=== PATIENT | female | born 1955 | race Caucasian/White ===

== ENCOUNTER 2024-07-04 17:53 | Emergency (ER) | payer MEDICARE, SELFPAY ==
[2024-07-04] VITALS (11 sets, daily range): BP systolic 124–171; BP diastolic 62–85; PULSE 76–84; RESP 16–18; TEMP 36.8–37.6; O2SAT 94–99; BMI 31.7
--- NOTE | 2024-07-04 18:38 | PC.NURSE ---
PT ASSISTED TO BR
--- NOTE | 2024-07-04 18:40 | CT_ITS ---
PROCEDURE INFORMATION: Exam: CT Abdomen And Pelvis Without Contrast Exam date and time: 07/04/2024 7:25 PM Age: 68 years old Clinical indication: Pain; Other: Rlq; Additional info: Rlq abd pain TECHNIQUE: Imaging protocol: Computed tomography of the abdomen and pelvis without contrast. Radiation optimization: All CT scans at this facility use at least one of these dose optimization techniques: automated exposure control; mA and/or kV adjustment per patient size (includes targeted exams where dose is matched to clinical indication); or iterative reconstruction. COMPARISON: CR XR CHEST PORTABLE 07/04/2024 6:53 PM FINDINGS: Lungs: Dependent bilateral lung base opacities favor atelectasis. Multiple calcific densities of the liver are likely related to prior granulomatous process. Liver: There is diffuse hypoattenuation of the liver compatible with mild hepatic steatosis. Gallbladder and biliary ducts: There are surgical clips within the gallbladder fossa. Pancreas: Normal. No ductal dilation. Spleen: Normal. No splenomegaly. Adrenal glands: Normal. No mass. Kidneys and ureters: Right renal Bosniak 1 cystic lesion that is homogeneous and fluid density (-9-20 HU), no septations or calcifications, having koehler smooth and thin. Measurement is 2.8 cm. No follow-up recommended. Stomach and bowel: Diverticula are scattered throughout the colon without inflammatory changes. Appendix: The appendix is not definitely identified, but there are no primary or secondary CT findings to suggest a diagnosis of acute appendicitis. Intraperitoneal space: Unremarkable. No free air. No significant fluid collection. Vasculature: Moderate calcific atherosclerotic disease of the abdominal aorta without aneurysmal dilatation is present. Lymph nodes: Unremarkable. No enlarged lymph nodes. Urinary bladder: Unremarkable as visualized. Reproductive: Unremarkable as visualized. Bones/joints: Postsurgical changes compatible with posterior fusion with transpedicular screws, vertical stabilizing bars, and intervertebral disc spacers between levels L3 through L5. Moderate loss of intervertebral disc space with degenerative changes involving L1 through S1. Soft tissues: Postsurgical changes compatible with bilateral mastectomies with right saline implant. IMPRESSION: No acute findings. COMMENTS: Consistent with the [employer]'s Incidental Findings Committee white paper (J Am Karen Radiol 2018): Any incidental renal lesion less than 1 cm or classified as too small to characterize, or any incidental cystic renal lesion characterized as simple-appearing, is likely benign. No follow-up imaging is recommended for these lesions per consensus recommendations based on imaging criteria.
--- NOTE | 2024-07-04 18:40 | XR_ITS ---
PROCEDURE INFORMATION: Exam: XR Chest Exam date and time: 07/04/2024 6:53 PM Age: 68 years old Clinical indication: Dyspnea TECHNIQUE: Imaging protocol: Radiologic exam of the chest. Views: 1 view. COMPARISON: No relevant prior studies available. FINDINGS: Lungs: See Pleural spaces finding. Pleural spaces: Low lung volumes are present without pleural effusions or consolidations that project above the diaphragm. Heart/Mediastinum: Unremarkable. No cardiomegaly. Bones/joints: ACDF hardware located at levels C5 through C7. IMPRESSION: Low lung volumes are present without pleural effusions or consolidations that project above the diaphragm.
--- NOTE | 2024-07-04 18:43 | ED_ITS ---
Discharge Plan Disposition Patient Disposition: Home, Self-Care Prescriptions Prescriptions: No Action ketotifen fumarate 0.025 % (0.035 %) drops OPHTHALMIC Patient Comments: LOCATION: BOTH EYES. INSTILL ONE DROP TO EACH EYE TWICE DAILY WHILE SYMPTOMATIC. levocetirizine 5 mg tablet 5 mg PO DAILY Patient Comments: TAKE ONE (1) TABLET(S) EVERY DAY BY ORAL ROUTE FOR 90 DAYS. levothyroxine 112 mcg tablet 112 mcg PO DAILY Patient Comments: TAKE ONE TABLET BY MOUTH DAILY metformin 1,000 mg tablet 1,000 mg PO DAILY Patient Comments: TAKE ONE TABLET BY MOUTH TWICE A DAY simvastatin 20 mg tablet 20 mg PO DAILY venlafaxine 150 mg capsule,extended release 24hr 150 mg PO DAILY anastrozole 1 mg tablet 1 mg PO Patient Comments: TAKE ONE (1) TABLET(S) EVERY DAY BY ORAL ROUTE FOR 90 DAYS. losartan 50 mg tablet 50 mg PO DAILY Patient Comments: TAKE ONE TABLET BY MOUTH DAILY naproxen 500 mg tablet 500 mg PO DAILY Patient Comments: TAKE ONE (1) TABLET(S) TWICE A DAY BY ORAL ROUTE. insulin glargine U-300 conc 300 unit/mL (3 mL) insulin pen SQ dulaglutide 1.5 mg/0.5 mL pen injector SQ fluticasone propionate 50 mcg/actuation spray,suspension INTRANASAL albuterol sulfate 90 mcg/actuation HFA aerosol inhaler See Protocol INHALATION DIRECTED Protocol: Insulin Corrective Med-Dose Regimen Condition: Fingerstick Blood Glucose Dose/Route: Insulin Units Condition: 151-200 mg/dl Dose/Route: 2 units/SQ Condition: 201-250 mg/dl Dose/Route: 5 units/SQ Condition: 251-300 mg/dl Dose/Route: 8 units/SQ Condition: 301-350 mg/dl Dose/Route: 10 units/SQ Condition: 351-400 mg/dl Dose/Route: 12 units/SQ Condition: 401-450 mg/dl Dose/Route: 15 units/SQ Condition: > 450 mg/dl Dose/Route: CALL MD Protocol Text: Medium Intensity Sliding Scale Insulin Referrals Follow up/Referrals: Kassie Hi APRN [Primary Care Provider] - See instructions Activity Restrictions/Add. Instructions Additional Instructions/Restrictions: After extensive emergency evaluation no emergent medical condition identified today. Your symptoms likely were related to your hyperglycemia and fluid losses but no further emergent intervention or hospitalization is required today. Please follow-up close with your primary care doctor to discuss ongoing glucose management. Clinical Impressions Clinical Impression: Hyperglycemia, Light headedness Instructions Patient Instructions: DI for Hyperglycemia -- Adult Print Language Print Language: Uzbek Discharge ED Provider: Brandon Snell General Adult HPI General Chief complaint: Hyper/Hypoglycemia Stated complaint: high blood sugar Time Seen by Provider: 07/04/24 18:26 History of Present Illness HPI narrative: Patient is a 68-year-old female presented with multiple complaints. Initial complaint is hyperglycemia and lightheadedness. She states that over the last several months she has been nauseated and having some abdominal discomfort particular the right lower quadrant. She has not had any imaging of her abdomen but she has had a colonoscopy which was unremarkable. She states that she is compliant with her insulin and her oral diabetes medications and her most recent A1c was around 7. She does states she has had some chills as well as a cough some foul-smelling urine and just generalized weakness at the moment. Related Data Home Medications ?Medication ?Instructions ?Recorded ?Confirmed anastrozole 1 mg tablet 1 mg PO 08/19/20 09/12/20 dulaglutide 1.5 mg/0.5 mL mg SQ 08/19/20 09/12/20 subcutaneous pen injector insulin glargine U-300 conc 300 unit SQ 08/19/20 09/12/20 unit/mL (3 mL) subcutaneous pen ketotifen fumarate 0.025 % (0.035 ml ophthalmic (eye) 08/19/20 09/12/20 %) eye drops levocetirizine 5 mg tablet 5 mg PO DAILY 08/19/20 07/04/24 levothyroxine 112 mcg tablet 112 mcg PO DAILY 08/19/20 07/04/24 losartan 50 mg tablet 50 mg PO DAILY 08/19/20 07/04/24 metformin 1,000 mg tablet 1,000 mg PO DAILY 08/19/20 07/04/24 naproxen 500 mg tablet 500 mg PO DAILY 08/19/20 07/04/24 simvastatin 20 mg tablet 20 mg PO DAILY 08/19/20 07/04/24 venlafaxine 150 mg 150 mg PO DAILY 08/19/20 07/04/24 capsule,extended release 24 hr albuterol sulfate 90 mcg/actuation See Protocol inhalation DIRECTED 09/12/20 07/04/24 aerosol inhaler fluticasone propionate 50 intranasal 09/12/20 09/12/20 mcg/actuation nasal spray,suspension Allergies Allergy/AdvReac Type Severity Reaction Status Date / Time Sulfa (Sulfonamide Allergy Intermediate Verified 09/12/20 12:48 Antibiotics) [facility] Disclaimer: The information contained in this section may have been updated after the patient was seen, as this information can be updated by other users. Social History Smoking Status: Never smoker alcohol intake: never substance use type: denies use current occupational status: employed Travel in the last 8 weeks: None Have you lived/traveled outside [place] in past 30 days?: No Contact w/someone who lives/traveled outside US past 30 days?: No Exposure to someone with infectious disease in past 14 days?: No Do you have a fever (greater than 100.4 F or 38 C)?: No Have you tested positive for COVID-19: No Exposed to someone with COVID-19 in past 14 days?: No Do you have a sore throat?: No Do you have a cough?: No Do you have any weakness?: No Do you have any diarrhea?: No Are you experiencing any unusual bleeding?: No Do you have any muscle aches/pain?: No Do you have any abdominal pain?: No Are you experiencing loss of taste or smell?: No Other Medical History Have you received the Pneumonia Vaccine: No ROS Obtained: Yes All systems reviewed & no additional complaints except as documented Physical Exam General General appearance: alert and in no apparent distress Respiratory Respiratory exam: Present normal lung sounds bilaterally; Absent respiratory distress Cardiovascular Cardiovascular exam: Present regular rate and normal rhythm Abdominal Exam Abdominal exam: Present soft and tenderness (Right lower quadrant tenderness) Neurological Exam Neurological exam: Present alert and oriented X3 Medical Decision Making Medical Records Screening: Per USPSTF and CDC recommendations, given the prevalence of disease in our region, it is our hospital?s policy to screen for HIV and viral Hepatitis for all patients aged 18 and over and those with ongoing risk factors. Miguel Inquiry Pt receiving controlled substance: No Vital Signs: 07/04/24 17:54 07/04/24 18:21 07/04/24 19:30 Temperature 99.7 F H Temperature Source Oral Pulse Rate 84 79 Pulse Rate [Radial] 78 Respiratory Rate 18 Blood Pressure 124/67 125/63 Blood Pressure [Right Arm] 124/67 Blood Pressure Mean [Right Arm] 86 Blood Pressure Source Blood Pressure Source [Right Arm] Automatic Cuff Blood Pressure Position Blood Pressure Position [Right Arm] Sitting 02 Sat by Pulse Oximetry 96 96 96 Oxygen Delivery Method Room Air Room Air 07/04/24 19:35 07/04/24 20:00 07/04/24 20:20 Temperature 98.5 F Temperature Source Oral Pulse Rate 78 77 78 Pulse Rate [Radial] Respiratory Rate 16 16 Blood Pressure 133/65 132/64 132/64 Blood Pressure [Right Arm] Blood Pressure Mean [Right Arm] Blood Pressure Source Automatic Cuff Automatic Cuff Blood Pressure Source [Right Arm] Blood Pressure Position Sitting Sitting Blood Pressure Position [Right Arm] 02 Sat by Pulse Oximetry 95 94 L 95 Oxygen Delivery Method Room Air 07/04/24 20:31 07/04/24 20:41 07/04/24 21:00 Temperature Temperature Source Pulse Rate 78 77 77 Pulse Rate [Radial] Respiratory Rate Blood Pressure 171/77 H 155/85 H 163/83 H Blood Pressure [Right Arm] Blood Pressure Mean [Right Arm] Blood Pressure Source Blood Pressure Source [Right Arm] Blood Pressure Position Blood Pressure Position [Right Arm] 02 Sat by Pulse Oximetry 95 97 97 Oxygen Delivery Method 07/04/24 21:26 Temperature Temperature Source Pulse Rate 76 Pulse Rate [Radial] Respiratory Rate 18 Blood Pressure 163/83 H Blood Pressure [Right Arm] Blood Pressure Mean [Right Arm] Blood Pressure Source Automatic Cuff Blood Pressure Source [Right Arm] Blood Pressure Position Sitting Blood Pressure Position [Right Arm] 02 Sat by Pulse Oximetry 99 Oxygen Delivery Method Room Air Lab Data Lab results reviewed: Yes I reviewed the patient's lab results. Lab Results 07/04/24 18:36: SARS-CoV-2 (PCR) Not detected, Influenza A Untype (PCR) Not detected, Influenza Type B (PCR) Not detected 07/04/24 18:40: VBG pH 7.32, VBG pCO2 44.0, VBG pO2 39.4, VBG HCO3 22.2 L, VBG Total CO2 23.6, VBG O2 Saturation 70.7 H, VBG Base Excess -3.9 L, VBG Lactic Acid 1.7, Urine Color Yellow, Urine Appearance Clear, Urine pH 6.0, Ur Specific Cope 1.020, Urine Protein Negative, Urine Glucose (UA) 3+, Urine Ketones Negative, Urine Blood Negative, Urine Nitrate Negative, Urine Bilirubin Negative, Urine Urobilinogen 0.2, Ur Leukocyte Esterase Negative, Urine RBC None, Urine WBC 10-20, Ur Squamous Epith Cells 5-10, Urine Bacteria 2+ 07/04/24 18:49: WBC 5.8, RBC 4.05 L, Hgb 12.6, Hct 37.4, MCV 92.3, MCH 31.1, MCHC 33.7, RDW 12.7, Plt Count 216, MPV 11.1 H, Neut % (Auto) 63.9, Lymph % (Auto) 15.5, [place] % (Auto) 17.0 H, Eos % (Auto) 1.5, Baso % (Auto) 0.7, Neut # (Auto) 3.7, Lymph # (Auto) 0.9, [place] # (Auto) 1.0, Eos # (Auto) 0.1, Baso # (Auto) 0.0, Sodium 130 L, Potassium 4.5, Chloride 96 L, Carbon Dioxide 24, Anion Gap 14.5, BUN 35 H, Creatinine 1.80 H, Estimated Creat Clear 39, Estimated GFR 28 L, Est GFR ( Amer) 34 L, Glucose 386 H, Calcium 9.2, Phosphorus 3.0, M agnesium 1.5 L, Total Bilirubin 0.4, AST 75 H, ALT 50, Alkaline Phosphatase 61, Troponin I < 0.01, Total Protein 6.6, Albumin 4.1, Globulin 2.5, Albumin/Globulin Ratio 1.6, Lipase 492 H, HCV Ab ROBERT w/Rflx PCR Qn Negative, HIV Ag/Ab Combo Qual Negative 07/04/24 18:49 07/04/24 18:49 Orders (Tests/Meds): ED MEDICATIONS Discontinued Medications Generic Name Dose Route Start Last Admin Trade Name Freq PRN Reason Stop Dose Admin Lactated Ringer's 1,000 mls @ 999 mls/hr 07/04/24 18:45 07/04/24 18:56 Lactated Ringer's 1000 Ml Bag IV 07/04/24 19:45 999 mls/hr .Q1H1M CHARLA Administration ORDERS Category Date Time Status CT abdomen pelvis wo con Stat Cat Scan 07/04/24 18:40 Completed CXR --portable [XR chest portable] Stat Exams 07/04/24 18:40 Completed CBC w/Auto Diff [Complete Blood Count Auto Diff] Stat Lab 07/04/24 18:49 Completed CMP [Comprehensive Metabolic Panel] Stat Lab 07/04/24 18:49 Completed HIV Combo Stat Lab 07/04/24 18:49 Completed Hepatitis C Ab Qual. W/ RFX Stat Lab 07/04/24 18:49 Completed Lipase Stat Lab 07/04/24 18:49 Completed Magnesium Stat Lab 07/04/24 18:49 Completed Phosphorous Stat Lab 07/04/24 18:49 Completed Rapid PCR Covid and Flu A/B Stat Lab 07/04/24 18:36 Completed Trop I [Troponin I] Stat Lab 07/04/24 18:49 Completed Troponin I Q3H Lab 07/04/24 21:45 Ordered Troponin I Q3H Lab 07/05/24 00:45 Ordered UA [Urinalysis and Microscopic] Stat Lab 07/04/24 18:40 Completed Blood Culture Stat Micro 07/04/24 18:40 Received Urine Culture Stat Micro 07/04/24 18:40 Received Venous Blood Gas Stat RT 07/04/24 18:40 Completed Medical Decision Narrative: Patient is a 68-year-old who seems to be compliant with her insulin and oral diabetic medications presents today with glucose greater than 500 prehospital. She also has many other complaints such as chronic abdominal pain right lower quadrant tenderness cough urinary symptoms as well as lightheadedness. This all could be from dehydration from osmotic diuresis in the setting of significant hyperglycemia however infections and other metabolic abnormalities are possible as well. Will also get a CT scan of her abdomen to rule out any pathology such as malignancy) she does have a history of breast cancer). Broad workup is pending IV fluids have been initiated and will reassess shortly. CT scan performed which I personally interpreted which shows no evidence of acute abnormality radiology read consistent with this as well. Labs unremarkable from an emergency standpoint she does have a creatinine of 1.8 but she has known chronic kidney disease and has been followed by environmental officer for this. I do not have a baseline but I presume that this is close to where she is. Patient does feel better after IV fluids lipase is very mildly elevated but she has no epigastric tenderness on my exam does not consistent with acute pancreatitis. Lastly COVID and flu were negative. Chest x-ray was performed which I personally interpreted which shows no evidence of acute cardiopulmonary emergency. Overall patient symptoms likely secondary to fluid losses and hyperglycemia but no evidence of DKA patient was discharged in improved and stable condition with advised to follow-up with her primary care doctor regarding ongoing glucose management Critical Care Critical Care Time Critical Care Time: No
--- NOTE | 2024-07-04 18:53 | PC.NURSE ---
portable rad at BS
--- NOTE | 2024-07-04 18:53 | PC.NURSE ---
XR AT BEDSIDE
[2024-07-04] MEDS: LACTATED RINGERS 1000ML 1,000 ML 999 ML IV (18:56)
[2024-07-04 18:58] LABS: Lactate Venous 1.7 mmol/L (0.4-2.0); Microscopic, Urine URINE MICROSCOPIC (MICROSCOPIC); VBG Base Excess -3.9 mmol/L (-2.4-2.3); VBG HCO3 22.2 mmol/L (23-30); VBG Oxygen Saturation 70.7 % (50-70); VBG PH 7.32 mmol/L (7.31-7.41); VBG PO2 39.4 mmol/L (28-40); VBG Total CO2 23.6 mmol/L (23-27)
[2024-07-04 18:59] LABS: Basophils % 0.7 % (0.1-2.0); Eosinophils # 0.1 K/mm3 (0.0-0.4); Eosinophils % 1.5 % (0.1-12.0); Hematocrit 37.4 % (37.0-47.0); Hemoglobin 12.6 g/dL (12.2-16.2); Lymphocytes # 0.9 K/mm3 (0.7-4.5); Lymphocytes % 15.5 % (10-50); Mean Corpuscular HGB Conc 33.7 g/dL (31.8-35.4); Mean Corpuscular Hemoglobin 31.1 pg (27.0-31.2); Mean Corpuscular Volume 92.3 fl (81-99); Mean Platelet Volume 11.1 fl (7.4-10.4); Neutrophils # 3.7 K/mm3 (1.8-7.8); Neutrophils % 63.9 % (37.0-80.0); Platelet Count 216 K/mm3 (142-424); Red Blood Count 4.05 M/mm3 (4.20-5.40); Red Cell Distribution Width 12.7 % (11.5-17.5); White Blood Count 5.8 K/mm3 (4.8-10.8)
--- NOTE | 2024-07-04 18:59 | ECG_ITS ---
APPROVED REPORT Exam: Resting ECG HR:77 bpm ECG Measurements Heart Rate 77 AXES MI 152 P 25 QRSd 88 QRS 64 QT 378 T 51 QTc 410 Conclusion SINUS RHYTHM NORMAL ECG UNCONFIRMED REPORT Electronically signed by : Harry Snell, 07/04/2024 22:26:47
[2024-07-04 19:02] LABS: Appearance,Urine CLEAR (Clear); Bilirubin,Urine Negative (Negative); Blood, Urine Negative (Negative); Color,Urine YELLOW (Yellow); Glucose,Urine (UA) 3+ (Negative); Ketones,Urine Negative (Negative); Leukocyte Esterase,Urine Negative (Negative); Nitrate,Urine Negative (Negative); Protein,Urine Negative (Negative); Urobilinogen,Urine 0.2 EU/dl (0.2)
[2024-07-04 19:07] LABS: Albumin Level 4.1 g/dl (3.5-5.0); Chloride 96 mmol/L (98-107); Potassium 4.5 mmoL/L (3.5-5.1); Sodium 130 mmol/L (136-145)
[2024-07-04 19:09] LABS: Blood Urea Nitrogen 35 mg/dl (7-17); Creatinine Clearance Estimated 39 mL/min (50-200); Estimated Glomerular Filt Rate 28 ml/min (>60); GFR (African American) 34 ML/MIN (>60)
[2024-07-04 19:10] LABS: Alanine Aminotransferase 50 U/L (12-78); Albumin/Globulin Ratio 1.6 (1.1-1.8); Alkaline Phosphatase 61 U/L (38-126); Anion Gap 14.5 mEq/L (5-15); Aspartate Amino Transferase 75 U/L (14-36); Bilirubin,Total 0.4 mg/dl (0.2-1.3); Calcium 9.2 mg/dl (8.4-10.2); Carbon Dioxide 24 mmol/L (22.0-30.0); Globulin 2.5 g/dL (1.3-3.2); Glucose 386 mg/dl (74-100); Lipase 492 U/L (23-300); Magnesium 1.5 mg/dl (1.6-2.3); Total Protein,Serum 6.6 g/dl (6.3-8.2)
--- NOTE | 2024-07-04 19:28 | PC.NURSE ---
Patient return from CT
[2024-07-04 19:34] LABS: Troponin I < 0.01 ng/ml (0.00-0.034)
[2024-07-04 20:10] LABS: Bacteria,Urine 2+ /lpf
[2024-07-04 20:32] LABS: Coronavirus 19, PCR Not Detected (NotDetected); Influenza A, PCR Not Detected (NotDetected); Influenza B, PCR Not Detected (NotDetected)
--- NOTE | 2024-07-04 20:33 | PC.NURSE ---
Patient ambulated to bathroom
[2024-07-04 20:45] LABS: HIV Combo NEGATIVE (Negative)
--- NOTE | 2024-07-04 20:50 | PC.NURSE ---
JARVIS Romo attempted to confirm medications on this patient and would not let her.
[2024-07-04 20:52] LABS: Hepatitis C Ab Qual. W/ RFX NEGATIVE (Negative)
--- NOTE | 2024-07-06 10:46 | PC.NURSE ---
attempted to call pt for update of symptoms, no answer with the numbers listed in chart. sent in cefalexin to pt pharmacy.
== END 2024-07-04 21:51 | disposition home or self-care (01) ==
PROVIDERS: Emergency Provider Student in an Organized Health Care Education/Training Program; PCP Nurse Practitioner Family
DX: E11.65 Type 2 diabetes mellitus with hyperglycemia (principal); R42 Dizziness and giddiness; R10.13 Epigastric pain; R11.0 Nausea; R68.83 Chills (without fever); R05.9 Cough, unspecified; R53.1 Weakness; R82.998 Other abnormal findings in urine; Z79.4 Long term (current) use of insulin
CPT/HCPCS: 71045; 74176; 80053; 81001; 82803; 83690; 83735; 84100; 84484; 85025; 86803; 87040; 87086; 87088; 87186; 87389; 87636; 93005; 96360; 99285; J7120